=== PATIENT | female | born 1945 | race Caucasian/White ===

== ENCOUNTER → 2017-07-14 | Outpatient (CLI) | payer OTHER, MEDICARE ==
[~2017-07-14] MED LIST: AMB10 PO; ASPEC81 PO; ATEN-173 PO; CARI350T28 PO; EZET10TA63 PO; FLUO20CA35 PO; ISOS30TA3 PO; NTRSLP4 PO; PRAV20TA PO; PRLSR20 PO; RXC5 PO; SENNTAB23 PO
[2017-07-14 18:06] LABS: BLOOD UREA NITROGEN 16 mg/dl (7-18)
== END | disposition home or self-care (01) ==
LOC: C.LABMFLN 15:00
PROVIDERS: ATTEND Urology
DX: R31.0 Gross hematuria (principal)

== ENCOUNTER 2022-04-10 07:57 | Inpatient (IN) ==
--- NOTE | 2022-03-23 15:34 | PAT Medication Instructions ---
Medication Instructions Date of Service March 23, 2022 Home Medications alirocumab 150 mg/mL subcutaneous syringe 150 mg subcut UD aspirin 81 mg tablet 81 mg PO QAM atenolol 25 mg tablet 25 mg PO QPM carisoprodol 350 mg tablet (Soma) 350 mg PO TID cholecalciferol (vitamin D3) 100 mcg (4,000 unit) capsule 100 mcg PO QAM ezetimibe 10 mg tablet (Zetia) 10 mg PO QPM fluoxetine 20 mg tablet 20 mg PO QAM nitroglycerin 0.4 mg sublingual tablet (Nitrostat) 0.4 mg sublingual UD PRN omeprazole 20 mg capsule,delayed release 20 mg PO BID oxycodone 5 mg tablet 5 mg PO Q4H PRN pravastatin 80 mg tablet 80 mg PO QAM prednisone 5 mg tablet 5 mg PO QAM sennosides 8.6 mg-docusate sodium 50 mg tablet 1 tab-cap PO HS zolpidem 10 mg tablet 10 mg PO QPM Continue as directed nitroglycerin 0.4 mg sublingual tablet (Nitrostat) 0.4 mg sublingual UD PRN(if needed) ASK your prescriber and surgeon alirocumab 150 mg/mL subcutaneous syringe 150 mg subcut UD aspirin 81 mg tablet 81 mg PO QAM DO NOT take the morning of surgery cholecalciferol (vitamin D3) 100 mcg (4,000 unit) capsule 100 mcg PO QAM Take morning of surgery With a small sip of water, OTHERWISE NOTHING TO EAT OR DRINK AFTER MIDNIGHT: carisoprodol 350 mg tablet (Soma) 350 mg PO TID fluoxetine 20 mg tablet 20 mg PO QAM omeprazole 20 mg capsule,delayed release 20 mg PO BID oxycodone 5 mg tablet 5 mg PO Q4H PRN(if needed) pravastatin 80 mg tablet 80 mg PO QAM prednisone 5 mg tablet 5 mg PO QAM Take evening before surgery atenolol 25 mg tablet 25 mg PO QPM carisoprodol 350 mg tablet (Soma) 350 mg PO TID ezetimibe 10 mg tablet (Zetia) 10 mg PO QPM omeprazole 20 mg capsule,delayed release 20 mg PO BID oxycodone 5 mg tablet 5 mg PO Q4H PRN(if needed) sennosides 8.6 mg-docusate sodium 50 mg tablet 1 tab-cap PO HS zolpidem 10 mg tablet 10 mg PO QPM Other Notes If you have any questions please call us at [phone] or [phone] or [phone] or [phone]
--- NOTE | 2022-03-27 12:18 | Anesthesiology Consultation ---
Date of Service March 27, 2022 Assessment & Plan (1) Encounter for pre-operative examination: - Check BSG AM DOS - COVID screening: Per assessment on 03/27: No known COVID-19 positive contacts or current COVID-19 related symptoms. Travel screen negative. At surgeon discretion if preop Covid testing being done. - Patient acceptable risk for surgery pending surgeon-ordered cardiology preop evaluation (scheduled 03/31; Dr. Patton/[facility]). Chart Review Chart Review: Patient seen in Pre Admission Testing Teaching & Discussion Pre-Anesthesia Teaching/Discussion Notes: Instructed NPO after midnight before surgery,except medications with 15 cc of water. Medication instructions provided according to the PAT guidelines. History Surgery Operation Date: 04/10/22 07:45 Proposed Procedures p L1-L3 Decompression and Fusion, L3-L5 Hardware Removal, Spinal Cord Monitoring - Yury Melendez, Height/Weight Height: 4 ft 11 in Weight: 68.5 kg Allergies Allergy/AdvReac Type Severity Reaction Status Date / Time Bactrim Allergy Severe SWELLING/RA Verified 08/20/14 08:48 SH Iodinated Contrast Media Allergy Severe ANAPHYLAXIS, Verified 03/23/22 08:54 FINE RASH sulfamethoxazole [Bactrim] Allergy Severe SWELLING/RA Verified 03/23/22 08:54 SH trimethoprim [Bactrim] Allergy Severe SWELLING/RA Verified 03/23/22 08:54 SH Penicillins Allergy Intermediate FINE RASH Verified 03/23/22 08:54 phenylephrine Allergy Unknown UNKNOWN Verified 03/25/22 14:15 REACTION DURING ADMISSION promethazine Allergy Unknown UNKNOWN Verified 03/25/22 14:15 REACTION DURING ADMISSION Cipro AdvReac Mild N/V Verified 08/01/14 13:00 ciprofloxacin [Cipro] AdvReac Mild N/V Verified 03/23/22 08:54 Egg Derived AdvReac Mild N/V Verified 03/23/22 08:54 meperidine AdvReac Mild N/V Verified 03/23/22 08:54 simvastatin AdvReac Mild MYALGIA Verified 03/23/22 08:54 metformin AdvReac Unknown GI DISTRESS Verified 03/25/22 14:15 Unclassified Drugs AdvReac Intermediate TIFFANIE > Uncoded 03/25/22 14:15 INFECTION Medications Home Medications Medication Instructions Recorded Confirmed Last Taken alirocumab 150 mg/mL subcutaneous 150 mg subcut UD 03/23/22 03/23/22 Unknown syringe aspirin 81 mg tablet 81 mg PO QAM 03/23/22 03/23/22 Unknown atenolol 25 mg tablet 25 mg PO QPM 03/23/22 03/23/22 Unknown carisoprodol 350 mg tablet (Soma) 350 mg PO TID 03/23/22 03/23/22 Unknown cholecalciferol (vitamin D3) 100 100 mcg PO QAM 03/23/22 03/23/22 Unknown mcg (4,000 unit) capsule ezetimibe 10 mg tablet (Zetia) 10 mg PO QPM 03/23/22 03/23/22 Unknown fluoxetine 20 mg tablet 20 mg PO QAM 03/23/22 03/23/22 Unknown nitroglycerin 0.4 mg sublingual 0.4 mg sublingual UD PRN Chest Pain 03/23/22 03/23/22 Unknown tablet (Nitrostat) omeprazole 20 mg capsule,delayed 20 mg PO BID 03/23/22 03/23/22 Unknown release oxycodone 5 mg tablet 5 mg PO Q4H PRN Pain 03/23/22 03/23/22 Unknown pravastatin 80 mg tablet 80 mg PO QAM 03/23/22 03/23/22 Unknown prednisone 5 mg tablet 5 mg PO QAM 03/23/22 03/23/22 Unknown sennosides 8.6 mg-docusate sodium 1 tab-cap PO HS 03/23/22 03/23/22 Unknown 50 mg tablet zolpidem 10 mg tablet 10 mg PO QPM 03/23/22 03/23/22 Unknown Prolia 60 mg DIRECTED 03/27/22 03/27/22 Unknown Toujeo Max U-300 SoloStar 12 unit INJ HS 03/27/22 03/27/22 Unknown diclofenac sodium 1 % topical gel topical 03/27/22 Unknown Past Medical History Medical History Arthritis Asthma CAD (coronary artery disease) Remote stents x2 total (2004, 2006), balloon dilation (2012) Diabetes mellitus IDDM Fall Fall (08/2021) > left sided fractured ribs > healed, no current issues GERD (gastroesophageal reflux disease) Hx of hepatitis 50+ years ago r/t drinking well water Hx of myocardial infarction 2004, 2006, 2012 (balloon dilation) Follows with [facility] (Dr. Patton), last visit 01/2022 Hyperlipidemia Hypertension IBS (irritable bowel syndrome) Osteoporosis Rheumatoid arthritis Reason for prednisone Exercise / Class Metabolic Activity II 4-5 Yardwork/Stairs/Walk up hill (one FS (no CP, no SOB)) Past Surgical History Surgical History History of back surgery X3 History of bladder surgery X3- MESH History of cholecystectomy History of coronary artery balloon dilation 2012 History of esophagogastroduodenoscopy (EGD) History of hemorrhoidectomy Hx of cardiac catheterization 2004, 2006 X2 STENTS Hx of colonoscopy Hx of hernia repair X3 Hx of hysterectomy Past Anesthesia History No Hx of Anesthesia Complications and No Family Hx of Anesthesia Complications History of PONV No Hx of PONV and Hx of Motion Sickness (Mild) Social History Smoking Status: Former smoker tobacco type: cigarettes Do You Dip or Chew Tobacco: No Smoking End Date: QUIT > 17 YRS AGO Hx Alcohol Use: No Hx Substance Use: No substance use type: does not use Review of Systems Patient denies chest pain, shortness of breath, dyspnea on exertion, fever, chills, cough, wheezing, palpitations. Physical Exam Vital Signs VITALS BP 128/73 P 66 TEMP 98.4 SP02 98%RA RESP 16 PHYSICAL Mildly decreased cervical extension range of motion. Full TMJ range of motion. TMD 3 finger breaths Mallampati Score 1 Dentition: upper full, edentulous Lungs: clear throughout to auscultation Cardiac: regular rate and rhythm, no murmurs noted Spine: kyphoscoliosis Carotid arteries: negative bruit Extremities: no edema Short neck Lab Results Anesthesia Preop Results Results Anesthesia Widget: WBC 11.30 K/ul (4.8-10.8) H 03/27/22 Hgb 13.0 g/dl (12.0-16.0) 03/27/22 Hct 40.5 % (34.1-44.9) 03/27/22 Plt 235 K/uL (130-400) 03/27/22 Na 140 mmol/L (136-145) 03/27/22 K 4.3 mmol/L (3.5-5.1) 03/27/22 Cl 104 mmol/L (98-107) 03/27/22 CO2 30 mmol/L (21-32) 03/27/22 BUN 15 mg/dl (6-23) 03/27/22 Creat 0.63 mg/dl (0.6-1.2) 03/27/22 Glucose Level 105 mg/dl (70-99(Fasting)) H 03/27/22 PT 10.3 Seconds (9.0-12.0) 03/27/22 PTT 22.9 Seconds (21.0-31.0) 03/27/22 INR 1.0 (0.9-1.1) 03/27/22 HA1c 6.7 % (4.5-5.6) H 03/27/22 Urine Color Yellow 03/27/22 Urine Appearance Clear (Clear) 03/27/22 Urine pH 7.5 (4.5-7.5) 03/27/22 Urine Specific [place] 1.016 (1.000-1.030) 03/27/22 Urine Protein Negative (Negative) 03/27/22 Urine Glucose (UA) Negative (Negative) 03/27/22 Urine Ketones Negative (Negative) 03/27/22 Urine Blood Negative (Negative) 03/27/22 Urine Nitrite Negative (Negative) 03/27/22 Urine Bilirubin Negative (Negative) 03/27/22 Urine Urobilinogen Negative (Negative) 03/27/22 Urine Leukocyte Esterase 1+ (Negative) H 03/27/22 Urine WBC (Auto) >30 /hpf (0-5) H 03/27/22 Urine RBC (Auto) 0-4 /hpf (0-4) 03/27/22 Urine Hyaline Casts (Auto) 1-5 /lpf (0-5) 03/27/22 Urine Epithelial Cells (Auto) >30 /lpf (0-5) H 03/27/22 Urine Bacteria (Auto) 2+ (Negative) H 03/27/22 Blood Type A Positive 03/27/22 Antibody Screen NEGATIVE 03/27/22 Testing Laboratory Results Surgeon's office made aware of elevated WBC and abnormal UA/culture* Electrocardiogram Date: 03/27/22 NSR at 70bpm. NS TWA. No significant change compared to 08/01/14 per project development coordinator review. Chest X-Ray Date: 03/27/22 FINDINGS: PA and lateral chest radiographs are compared to study dated 08/01/2014. The cardiomediastinal silhouette is unremarkable noting atherosclerotic calcification of the thoracic aorta. The lungs and pleural spaces are clear. There is no pneumothorax. The skeletal structures are osteopenic. There are healed left-sided rib fractures. Fusion hardware is partially visualized in the lumbar spine. Cholecystectomy clips are noted in the right upper quadrant. IMPRESSION: No active disease in the chest. Echocardiogram Date: 09/25/20 LVEF 58%. No regional motion abnormality. Mild MR. Stress Test Date: 11/16/17 Type: DSE No echocardiographic evidence of dobutamine induced myocardial ischemia. 111% MPHR. 1.5 mm horizontal to downsloping ST depression inferior leads and 1.[address] depression in V5 and V6 at peak infusion "it is probably false positive" per report. Rest echo LVEF 65%. Grade 2 diastolic dysfunction. Moderate LAE. Mild MR. Cervical Spine Date: 03/27/22 Osteopenia and spondylotic change as above. There is no evidence of inducible subluxation on the flexion/extension views. No acute abnormality is seen on these lateral projections. COVID-19 Risk Screen Screening Information COVID-19 Screen Date: 03/27/22 Exposure 21 Days Family/Household +COVID Last 21 Days: No Exposure 10 Days Any COVID Exposure Last 10 Days: No Symptoms Last 10 Days Experienced COVID Sx Last 10 Days: No + COVID 0-90 Days COVID + in Last 0-90 Days: No
[~2022-04-10 07:57] MED LIST changes: +ACETAMINOPHEN 500 MG TAB PO SCH; -AMB10 PO; -ASPEC81 PO; -ATEN-173 PO; -CARI350T28 PO; +CeleBREX 200 MG CAP PO SCH; -EZET10TA63 PO; -FLUO20CA35 PO; +GABAPENTIN 300 MG CAP PO SCH; -ISOS30TA3 PO; +LR 15ML/HR IV SCH; -NTRSLP4 PO; -PRAV20TA PO; -PRLSR20 PO; -RXC5 PO; -SENNTAB23 PO; +ceFAZolin 1000MG 1,000 MG/7.5 ML SYR IV SCH
[2022-04-10] MEDS ORDERED: ROCURONIUM BROMIDE 10 MG/ML 5 ML VIAL IV ONE (08:24)
[2022-04-10] MEDS ORDERED: PROPOFOL IV EMULSION 10 MG/ML 20 ML VIAL IV ONE (08:24)
[2022-04-10] MEDS ORDERED: LIDOCAINE 2% 20 MG/ML 5 ML SYR IV ONE (08:24)
[2022-04-10] MEDS ORDERED: MIDAZOLAM HCL 1 MG/ML 2ML VIAL ONE (08:25)
[2022-04-10] MEDS ORDERED: fentaNYL citrate 100 MCG/2 ML VIAL ONE ×2 (08:25→12:02)
--- NOTE | 2022-04-10 09:03 | History & Physical Bridge Note ---
Date of Service April 10, 2022 History & Physical Bridge Note I have examined the patient, reviewed the History & Physical and in the interval since the performance of the History & Physical I have noted the following changes of clinical significance: no changes noted
--- NOTE | 2022-04-10 09:04 | History & Physical Report ---
Date of Service April 10, 2022 Assessment & Plan (1) Lumbar stenosis with neurogenic claudication: Plan: L1-L3 decompression and fusion, L3-L5 hardware removal History of Present Illness Chief Complaint: Back and bilateral leg pain Primary Care Provider: Syed Clemons This is a 76-year-old female who presents with chronic persistent back and bilateral leg pain. Failed extensive course of nonoperative care is here for surgical invention. Allergies Allergy/AdvReac Type Severity Reaction Status Date / Time Bactrim Allergy Severe SWELLING/RA Verified 08/20/14 08:48 SH Iodinated Contrast Media Allergy Severe ANAPHYLAXIS, Verified 04/10/22 08:28 FINE RASH sulfamethoxazole [Bactrim] Allergy Severe SWELLING/RA Verified 04/10/22 08:28 SH trimethoprim [Bactrim] Allergy Severe SWELLING/RA Verified 04/10/22 08:28 SH Penicillins Allergy Intermediate FINE RASH Verified 04/10/22 08:28 phenylephrine Allergy Unknown UNKNOWN Verified 04/10/22 08:28 REACTION DURING ADMISSION promethazine Allergy Unknown UNKNOWN Verified 04/10/22 08:28 REACTION DURING ADMISSION Cipro AdvReac Mild N/V Verified 08/01/14 13:00 ciprofloxacin [Cipro] AdvReac Mild N/V Verified 04/10/22 08:28 Egg Derived AdvReac Mild N/V Verified 04/10/22 08:28 meperidine AdvReac Mild N/V Verified 04/10/22 08:28 simvastatin AdvReac Mild MYALGIA Verified 04/10/22 08:28 metformin AdvReac Unknown GI DISTRESS Verified 04/10/22 08:28 Unclassified Drugs AdvReac Intermediate TIFFANIE > Uncoded 04/10/22 08:28 INFECTION Home Medications Medication Instructions Recorded Confirmed Type alirocumab 150 mg/mL subcutaneous 150 mg subcut UD 03/23/22 04/10/22 History syringe aspirin 81 mg tablet 81 mg PO QAM 03/23/22 04/10/22 History atenolol 25 mg tablet 25 mg PO QPM 03/23/22 04/10/22 History carisoprodol 350 mg tablet (Soma) 350 mg PO TID 03/23/22 04/10/22 History cholecalciferol (vitamin D3) 100 100 mcg PO QAM 03/23/22 04/10/22 History mcg (4,000 unit) capsule ezetimibe 10 mg tablet (Zetia) 10 mg PO QPM 03/23/22 04/10/22 History fluoxetine 20 mg tablet 20 mg PO QAM 03/23/22 04/10/22 History nitroglycerin 0.4 mg sublingual 0.4 mg sublingual UD PRN Chest Pain 03/23/22 03/23/22 History tablet (Nitrostat) omeprazole 20 mg capsule,delayed 20 mg PO BID 03/23/22 04/10/22 History release oxycodone 5 mg tablet 5 mg PO Q4H PRN Pain 03/23/22 03/23/22 History pravastatin 80 mg tablet 80 mg PO QAM 03/23/22 04/10/22 History prednisone 5 mg tablet 5 mg PO QAM 03/23/22 04/10/22 History sennosides 8.6 mg-docusate sodium 1 tab-cap PO HS 03/23/22 04/10/22 History 50 mg tablet zolpidem 10 mg tablet 10 mg PO QPM 03/23/22 04/10/22 History Prolia 60 mg DIRECTED 03/27/22 04/10/22 History Toujeo Max U-300 SoloStar 12 unit INJ HS 03/27/22 04/10/22 History diclofenac sodium 1 % topical gel topical 03/27/22 History Past Med/Surg History Medical History Arthritis Asthma CAD (coronary artery disease) Remote stents x2 total (2004, 2006), balloon dilation (2012) Diabetes mellitus IDDM Fall Fall (08/2021) > left sided fractured ribs > healed, no current issues GERD (gastroesophageal reflux disease) Hx of hepatitis 50+ years ago r/t drinking well water Hx of myocardial infarction 2004, 2006, 2012 (balloon dilation) Follows with [facility] (Dr. Patton), last visit 01/2022 Hyperlipidemia Hypertension IBS (irritable bowel syndrome) Osteoporosis Rheumatoid arthritis Reason for prednisone Surgical History History of back surgery X3 History of bladder surgery X3- MESH History of cholecystectomy History of coronary artery balloon dilation 2013 History of esophagogastroduodenoscopy (EGD) History of hemorrhoidectomy Hx of cardiac catheterization 2004, 2006 X2 STENTS Hx of colonoscopy Hx of hernia repair X3 Hx of hysterectomy Social History (Updated 12/29/21 @ 09:53 by Ann Tinoco) Smoking Status: Former smoker Smoking End Date: QUIT > 17 YRS AGO; Second Hand Exposure: No; Do You Dip or Chew Tobacco: No; Tobacco Cessation Education Requested by Patient: No Hx Alcohol Use: No Hx Substance Use: No Preferred Language: Kyrgyz Communication Ability: Effective Medical Assembly Required: No Beliefs That Will Affect Care: None Current Living Situation: Alone Other Information That Helps Us Care for You: No Feels Safe at Home: Yes Safety Concerns: Feels Safe At This Time Assistive Devices: Walker Assistive Devices Comment: USES WALKER OCCASIONALLY Physical Exam Physical Exam: Patient is alert and oriented Heart regular rhythm Lungs clear Results & Data Results & Data ([facility]) Vital Signs (Past 12 Hours) Vital Signs Temp Pulse Resp BP Pulse Ox O2 Del Method 04/10/22 08:23 36.8 C 67 16 151/75 H 95 Room Air
[2022-04-10] MEDS ORDERED: BUPIVACAINE/EPINEPHRINE 0.25% 1:200,000 30 ML VIAL ONE (09:22)
[2022-04-10] MEDS ORDERED: Nursing to Pharmacy Communication SCH (09:45)
[2022-04-10] MEDS ORDERED: HYDROCORTISONE SOD SUCCINATE 100 MG/2 ML VIAL ONE (10:23)
[2022-04-10] MEDS ORDERED: PHENYLEPHRINE 100MCG/ML 5ML SYR ONE (10:23)
[2022-04-10] MEDS ORDERED: ONDANSETRON INJ 2 MG/ML 2 ML VIAL ONE (10:23)
[2022-04-10] MEDS ORDERED: ePHEDrine sulfate 50 MG/ML AMP ONE (10:25)
[2022-04-10] MEDS ORDERED: ceFAZolin 330 MG/ML 1 GM VIAL IM ONE (10:38)
[2022-04-10] MEDS ORDERED: ceFAZolin 1000MG 1,000 MG/7.5 ML SYR IV ONE (10:42)
[2022-04-10] MEDS ORDERED: FLOSEAL HEMOSTATIC MATRIX 10ML TOP ONE (10:44)
[2022-04-10] MEDS ORDERED: SUGAMMADEX SODIUM 200 MG/2 ML VIAL IV ONE (10:46)
--- NOTE | 2022-04-10 11:29 | Operative Report ---
Post Operative Report Pre & Post Diagnosis Operation Date: 04/10/22 09:35 Pre-Op Diagnosis: Lumbar Stenosis with Neurogenic Claudication Post-Op Diagnosis: Lumbar Stenosis with Neurogenic Claudication Osteoporosis I identified the patient and participated in the time-out.: Yes Procedure Operation Date: 04/10/22 09:35 Actual Procedures #1 removal of posterior instrumentation L3-L5. #2 exploration of fusion L3-L5. #3 lumbar decompression bilateral medial facetectomies and foraminotomies L1-L2 L2-L3. #4 posterior spinal fusion L1-L3. #5 placement posterior instrumentation L2-L5. #6 placement locally harvested morselized autograft in the posterior gutters. #7 placement of I factor model V toss in the posterior gutters L1-L3. Surgeon Yury Melendez, DO Regulatory Lead Cody Bertrand Estimated Blood Loss 150 Findings Consistent with Post-Op Diagnosis Specimens None Indications This is a 76-year-old female who presents above-mentioned diagnosis of pain since course of nonoperative care she is here for surgical invention. Description of Procedure Patient was met with identified informed consent obtained. Patient was then taken to the operative suite underwent a patient placed in a prone position on the [facility] top Tee frame. All bony prominences well-padded eyes inspected to ensure no external pressure placed upon them. Lumbar spine was then prepped and draped no sterile fashion. Sharp dissection with the assistance pericardial performed down to and exposing the lamina and transverse processes of L1-L2 and instrumentation L3-L4-L5 bilaterally. I then proceeded to move the hardware bilaterally explore the fusion mass noting it to be mature and intact. I performed a complete laminectomy of L2 partial laminectomy of L1 including bilateral medial facetectomies and foraminotomies addressing severe spinal stenosis. I did explore the left L3 nerve root removing any disc herniations that had migrated caudally. At this complete pedicle screws were placed in L2-L3 and L5 bilaterally with assistance of fluoroscopy the proper sized estrella locked into position. The transverse processes of L1-L2-L3 were then burred to subcortical bleeding bone. I factor combined with V toss and locally harvested morselized autograft was placed in the posterior gutters. 15 round JORGE drain inserted. The incision was then closed with 1 Vicryl the fascia 2-0 Vicryl subcutaneously and 4 Monocryl for final skin closure. Steri-Strip sterile dressings placed. Patient was then awakened taken to PACU in stable condition. Please note spinal cord monitoring was utilized at the procedure no changes noted. Lastly Cody Bertrand was present at the entire surgeon while the patient positioning complex portions of the surgery and final skin closure. I attest to the content of the Intraoperative Record and any orders documented therein. Any exceptions are noted below.
[2022-04-10] MEDS ORDERED: ePHEDrine sulfate 50 MG/ML AMP IV PRN (12:01)
[2022-04-10] MEDS ORDERED: HYDROmorphone INJ 1 MG/ML SYRINGE IV PRN ×2 (12:01→13:04)
[2022-04-10] MEDS ORDERED: ONDANSETRON INJ 2 MG/ML 2 ML VIAL IV PRN ×2 (12:01→13:04)
[2022-04-10] MEDS ORDERED: ATROPINE SULFATE 0.1 MG/ML 10ML SYR IV PRN (12:01)
[2022-04-10] MEDS: fentaNYL citrate 100 MCG/2 ML VIAL IV PRN ×4 (12:01→12:16)
--- NOTE | 2022-04-10 12:49 | Anesthesiology Progress Note ---
Date of Service April 10, 2022 Anesthesia Post Procedure Vital Signs Vital Signs: Temp Pulse Resp BP Pulse Ox O2 Del Method O2 Flow Rate 04/10/22 12:35 36.5 C 78 16 108/61 99 Nasal Cannula 2 04/10/22 12:25 36.5 C 77 16 105/51 L 99 Nasal Cannula 2 04/10/22 12:15 76 16 109/54 L 97 Oxymask 5 04/10/22 12:05 83 16 104/62 100 Oxymask 5 04/10/22 11:55 36.5 C 85 16 131/62 100 Oxymask 5 04/10/22 08:23 36.8 C 67 16 151/75 H 95 Room Air Pain Intensity Lower Back: Pain Intensity: 4 Left Leg: Pain Intensity: 4 Transfer of Care Handoff Completed per policy Notes Mental Status: alert / awake / arousable and participated in evaluation Patient Amnestic to Procedure: Yes Nausea / Vomiting: adequately controlled Pain: adequately controlled Airway Patency, RR, SpO2: stable & adequate BP & HR: stable & adequate Hydration State: stable & adequate Anesthetic Complications: no major complications apparent
[2022-04-10] MEDS ORDERED: METOCLOPRAMIDE HCL INJ 5 MG/ML 2 ML VIAL IV PRN (13:04)
[2022-04-10] MEDS ORDERED: ALUMINUM/MAGNESIUM SUSP 30 ML UDC PO PRN (13:04)
[2022-04-10] MEDS ORDERED: ACETAMINOPHEN 1,000 MG/100 ML VIAL IV PRN (13:04)
[2022-04-10] MEDS ORDERED: NALOXONE HCL 0.4 MG/1 ML VIAL/CARP IV PRN (13:04)
[2022-04-10] MEDS ORDERED: diphenhydrAMINE Capsule 25 MG CAP PO PRN (13:04)
[2022-04-10] MEDS ORDERED: LACTATED RINGER'S 1,000 ML IV SCH ×2 (13:04→22:00)
[2022-04-10] MEDS ORDERED: ACETAMINOPHEN 500 MG TAB PO PRN (13:04)
[2022-04-10] MEDS ORDERED: NITROGLYCERIN SL 0.4 MG/TAB TAB SL PRN (13:04)
[2022-04-10] MEDS ORDERED: PROMETHAZINE HCL 12.5 MG in SODIUM CHLORIDE 0.9% 50 ML IV PRN (13:04)
[2022-04-10] MEDS ORDERED: bisacodyL 10 MG SUPP PR PRN (13:04)
[2022-04-10] MEDS ORDERED: HYDROmorphone INJ 0.5 MG/0.5 ML SYR IV PRN (13:04)
[2022-04-10] MEDS ORDERED: MAGNESIUM HYDROXIDE SUSP 30 ML UDC PO PRN (13:04)
[2022-04-10] MEDS ORDERED: FAMOTIDINE 20 MG TAB PO PRN (13:04)
[2022-04-10] MEDS ORDERED: hydrOXYzine HCl 25 MG TAB PO PRN (13:04)
[2022-04-10] MEDS ORDERED: LORazepam 0.5 MG in SYRINGE 0 ML IV PRN (13:04)
[2022-04-10] MEDS ORDERED: SOD PHOSPHATE/SOD BIPHOSPHATE ENEMA 132 ML BTL PR PRN (13:04)
[2022-04-10] MEDS ORDERED: traMADol HCL 50 MG TABLET PO PRN (13:04)
[2022-04-10] MEDS ORDERED: LORazepam 0.5 MG TAB PO PRN (13:04)
[2022-04-10] MEDS ORDERED: ONDANSETRON 4 MG OD TAB PO PRN (13:04)
--- NOTE | 2022-04-10 13:49 | Fluoroscopy Report ---
INTRAOPERATIVE RADIOGRAPHS CLINICAL HISTORY: Lumbar spinal fusion. Fluoroscopy time: 16 seconds. FINDINGS: 3 spot fluoroscopic views of the lumbar spine are presented. Comparison is made to study dennise foster 08/20/2014. There has been discectomy at L5-S1. Interpedicular screws are in place at L2, L3, and L 5. The orthopedic hardware appears intact. IMPRESSION: Intraoperative images from lumbar spinal fusion surgery as above. Electronically signed by: Segundo Beasley M.D. 04/10/2022 1:47 PM
[2022-04-10] MEDS: dexAMETHasone 6 MG in SYRINGE 0 ML IV SCH (14:17)
[2022-04-10] MEDS ORDERED: ALBUTEROL HFA 8 GM INHALER INH PRN (14:20)
[2022-04-10] MEDS ORDERED: SODIUM CHLORIDE 0.9% 1000ML 500 ML IV ONE (14:22)
--- NOTE | 2022-04-10 14:24 | Consultation ---
Date of Consultation April 10, 2022 Assessment & Plan (1) Status post lumbar surgery: (2) Lumbar stenosis with neurogenic claudication: Post op day# 0 S/P L1-L3 decompression and fusion by Dr Nora LANGLEY#150ml Pain management per ortho Wound management per ortho PT/OT as appropriate DVT prophylaxis per ortho Incentive spirometry Monitor H&H for acute blood loss anemia; pre-op Hgb: 13 (3) Essential hypertension: BP running low side after coming to floor. Time of my evaluation BP 89/49 Given IVF bolus with improvement BP of 103/58 Hold home lisinopril and reassess tomorrow Atenolol with holding parameters (4) Diabetes mellitus, type II: Insulin dependent A1c: 6.7 on 03/27/22 Hold home insulin. Basal bolus insulin per glycemic pharmacist. Appreciate glycemic management (5) CAD (coronary artery disease): S/P stent in 2004, 2006 Continue aspirin, atenolol with holding parameters (6) Arthritis: On chronic steroids Continue prednisone (7) Mixed hyperlipidemia: Continue ezetimibe Resume Praluent outpatient (8) COPD (chronic obstructive pulmonary disease): No signs exacerbation Continue albuterol prn (9) Depression: Continue fluoxetine DVT Prophylaxis SCDs per ortho Disposition per primary team Follows with Dr Syed Clemons for routine care Pt was seen and care coordinated with Dr Woodruff. See addendum Thank you for this consultation. We will follow the patient with you during their hospital stay. You can reach a member of the [facility] Hospitalist Team 11/01 via [facility] Supervising Physician Co-Signing Physician Notes I have seen and examined the patient and have discussed the case with the provider above. I agree with the assessment and plan as stated. 76 yo F s/p lumbar surgery today. Post operative hypotension is related to narcotics in PACU, most likely. Daughter was very interested in getting her pain medications and knowing frequencies/dosing where the patient was not in severe pain. We discussed the prolonged pain control that comes with PO meds instead of IV meds which only last a short while. We set expectations that she should request these medications to manage the pain, but that we won't be getting her pain level to a zero. She verbalized understanding. She reports that her original leg pain pre-op is now gone, and she is improved. She denies any chest pain, SOB or other symptoms at this time. Physical exam as above. Cont insulin while hospitalized because she is in a stressed state post operatively and is receiving decadron which will cause hyperglycemia. Thank you for this consultation! We will continue to follow her during this hospital stay. DO Ranjan History of Present Illness Requesting Physician: Dr Melendez Reason for Consultation: Post op medical management Attending Physician: Yury Melendez DO History of Present Illness Patient is 76 y/o F with PMH DM II, CAD s/p stent in 2004, 2006, HTN, dyslipidemia, COPD, arthritis, chronic back pain, depression, GERD seen in medical consultation s/p L1-L3 decompression and fusion today by Dr Melendez. Post op patient reports pain 4 out of 10 on pain scale. She denies dizziness, CP, SOB, syncope. She had received IV fentanyl 100mcg in PACU prior to coming to floor. SBP noted to drop in 70's per nursing staff and pt placed in supine position with repeat SBP of 84. Denies nausea, vomiting. Last BM reported yesterday. Denies fever/chills, diaphoresis, SWARTZ, vision changes, neck pain, pa lpitations, cough, sore throat, choking, rhinorrhea, abdominal pain, paresthesias, extremity weakness, extremity edema, rashes, urinary symptoms. Allergies Allergy/AdvReac Type Severity Reaction Status Date / Time Bactrim Allergy Severe SWELLING/RA Verified 08/20/14 08:48 SH Iodinated Contrast Media Allergy Severe ANAPHYLAXIS, Verified 04/10/22 08:28 FINE RASH sulfamethoxazole [Bactrim] Allergy Severe SWELLING/RA Verified 04/10/22 08:28 SH trimethoprim [Bactrim] Allergy Severe SWELLING/RA Verified 04/10/22 08:28 SH Penicillins Allergy Intermediate FINE RASH Verified 04/10/22 08:28 phenylephrine Allergy Unknown UNKNOWN Verified 04/10/22 08:28 REACTION DURING ADMISSION promethazine Allergy Unknown UNKNOWN Verified 04/10/22 08:28 REACTION DURING ADMISSION Cipro AdvReac Mild N/V Verified 08/01/14 13:00 ciprofloxacin [Cipro] AdvReac Mild N/V Verified 04/10/22 08:28 Egg Derived AdvReac Mild N/V Verified 04/10/22 08:28 meperidine AdvReac Mild N/V Verified 04/10/22 08:28 simvastatin AdvReac Mild MYALGIA Verified 04/10/22 08:28 metformin AdvReac Unknown GI DISTRESS Verified 04/10/22 08:28 Unclassified Drugs AdvReac Intermediate TIFFANIE > Uncoded 04/10/22 08:28 INFECTION Home Medications Medication Instructions Recorded Confirmed Type alirocumab 150 mg/mL subcutaneous 150 mg subcut UD 03/23/22 04/10/22 History syringe atenolol 25 mg tablet 25 mg PO QPM 03/23/22 04/10/22 History carisoprodol 350 mg tablet (Soma) 350 mg PO TID 03/23/22 04/10/22 History cholecalciferol (vitamin D3) 100 100 mcg PO QAM 03/23/22 04/10/22 History mcg (4,000 unit) capsule ezetimibe 10 mg tablet (Zetia) 10 mg PO QPM 03/23/22 04/10/22 History fluoxetine 20 mg tablet 20 mg PO QAM 03/23/22 04/10/22 History nitroglycerin 0.4 mg sublingual 0.4 mg sublingual UD PRN Chest Pain 03/23/22 03/23/22 History tablet (Nitrostat) omeprazole 20 mg capsule,delayed 20 mg PO BID 03/23/22 04/10/22 History release pravastatin 80 mg tablet 80 mg PO QAM 03/23/22 04/10/22 History prednisone 5 mg tablet 5 mg PO QAM 03/23/22 04/10/22 History sennosides 8.6 mg-docusate sodium 1 tab-cap PO HS 03/23/22 04/10/22 History 50 mg tablet zolpidem 10 mg tablet 10 mg PO QPM 03/23/22 04/10/22 History Prolia 60 mg DIRECTED 03/27/22 04/10/22 History Toujeo Max U-300 SoloStar 12 unit INJ HS 03/27/22 04/10/22 History diclofenac sodium 1 % topical gel 1 ea topical TID PRN Pain 03/27/22 04/10/22 History albuterol sulfate 90 mcg/actuation 2 puff inhalation Q4H PRN 04/10/22 04/10/22 History aerosol inhaler (Ventolin HFA) Shortness Of Breath Or Wheezing aspirin 81 mg tablet,delayed 81 mg PO DAILY 04/10/22 04/10/22 History release fluoxetine 40 mg capsule 40 mg PO DAILY 04/10/22 04/10/22 History lisinopril 2.5 mg tablet 2.5 mg PO PM 04/10/22 04/10/22 History Patient History Medical History (Updated 04/10/22 @ 16:50 by Nadya Jones PA-C) Arthritis Asthma CAD (coronary artery disease) Remote stents x2 total (2004, 2006), balloon dilation (2012) COPD (chronic obstructive pulmonary disease) Depression Diabetes mellitus IDDM Fall Fall (08/2021) > left sided fractured ribs > healed, no current issues GERD (gastroesophageal reflux disease) Hx of hepatitis 50+ years ago r/t drinking well water Hx of myocardial infarction 2004, 2006, 2012 (balloon dilation) Follows with S cardio (Dr. Patton), last visit 01/2022 Hyperlipidemia Hypertension IBS (irritable bowel syndrome) Osteoporosis Rheumatoid arthritis Reason for prednisone Surgical History (Updated 04/10/22 @ 16:45 by Nadya Jones PA-C) History of back surgery X3 History of bladder surgery X3- MESH History of cholecystectomy History of coronary artery balloon dilation 2012 History of esophagogastroduodenoscopy (EGD) History of hemorrhoidectomy Hx of cardiac catheterization 2004, 2006 X2 STENTS Hx of colonoscopy Hx of hernia repair X3 Hx of hysterectomy Family History (Updated 04/10/22 @ 16:42 by Nadya Jones PA-C) Other Breast cancer Colorectal cancer Diabetes Heart disease Hypertension Social History Smoking Status: Former smoker Smoking End Date: QUIT > 17 YRS AGO; Second Hand Exposure: No; Do You Dip or Chew Tobacco: No; Tobacco Cessation Education Requested by Patient: No Hx Alcohol Use: No Hx Substance Use: No Preferred Language: Montserratian Communication Ability: Effective Facilities Maintenance Supervisor Required: No Beliefs That Will Affect Care: None Current Living Situation: Alone Other Information That Helps Us Care for You: No Feels Safe at Home: Yes Safety Concerns: Feels Safe At This Time Assistive Devices: Walker Assistive Devices Comment: USES WALKER OCCASIONALLY Review of Systems Review of Systems: All systems reviewed & are unremarkable except as noted in HPI & below Physical Exam Physical Exam: General: no distress, WDWN Head: normocephalic, atraumatic Eyes: conjunctiva non-injected, anicteric ENT: normal inspection external ears, nose, mucous membranes moist Neck: supple, trachea midline Lungs: clear, no respiratory distress, no wheezing/rhonchi/rales CV: RRR, no murmur, no pretibial edema Abd: normal BS, soft, non-tender Back: surgical dressing dry, +JORGE drain with serosanguineous drainage Ext: no cyanosis, no calf tenderness; bilateral pedal pushes and pulls intact, sensation to light touch intact, distal pulses intact Neuro: A&O x 3, no focal deficits noted, normal affect Skin: warm, dry Results & Data ([facility]) Vital Signs (Past 12 Hours) Vital Signs Temp Pulse Resp BP BP Pulse Ox O2 Del Method 04/10/22 14:05 36.2 C L 72 15 97/44 L 87/40 L 97 Nasal Cannula 04/10/22 13:35 94/58 L 04/10/22 13:30 36.6 C 16 89/49 L 97 Nasal Cannula 04/10/22 12:53 36.9 C 79 16 100/55 L 99 Nasal Cannula 04/10/22 12:35 36.5 C 78 16 108/61 99 Nasal Cannula 04/10/22 12:25 36.5 C 77 16 105/51 L 99 Nasal Cannula 04/10/22 12:15 76 16 109/54 L 97 Oxymask 04/10/22 12:05 83 16 104/62 100 Oxymask 04/10/22 11:55 36.5 C 85 16 131/62 100 Oxymask 04/10/22 08:23 36.8 C 67 16 151/75 H 95 Room Air O2 Flow Rate 04/10/22 14:05 2 04/10/22 13:35 04/10/22 13:30 04/10/22 12:53 2 04/10/22 12:35 2 04/10/22 12:25 2 04/10/22 12:15 5 04/10/22 12:05 5 04/10/22 11:55 5 04/10/22 08:23
[2022-04-10] MEDS ORDERED: HYDROCODONE/ACETAMOPHEN 5/325MG TAB PO STA (14:42)
[2022-04-10] MEDS: CARISOPRODOL 350 MG TABLET PO SCH ×2 (16:14→20:32)
[2022-04-10] MEDS ORDERED: CARBOHYDRATES FOR HYPOGLYCEMIA PO PRN (17:58)
[2022-04-10] MEDS ORDERED: GLUCOSE 10 TAB/TUBE PO PRN (17:58)
[2022-04-10] MEDS ORDERED: GLUCOSE 40% GEL 15 GM TUBE PO PRN (17:58)
[2022-04-10] MEDS ORDERED: DEXTROSE 50% 50 ML SYRINGE IV PRN (17:58)
[2022-04-10] MEDS ORDERED: GLUCAGON FOR INJ 1 MG VIAL SQ PRN (17:58)
[2022-04-10] MEDS: CLINDAMYCIN/D5W 600 MG/50 ML BAG IV SCH (18:13)
[2022-04-10] MEDS ORDERED: INSULIN ASPART PER UNIT ONE (18:40)
[2022-04-10] MEDS: INSULIN ASPART PER UNIT SC SCH ×2 (18:41→20:56)
[2022-04-10] MEDS ORDERED: LACTATED RINGER'S 1,000 ML IV ONE (20:06)
[2022-04-10] MEDS: ZOLPIDEM TARTRATE 10 MG TAB PO SCH (20:12)
[2022-04-10] MEDS: HYDROCODONE/ACETAMOPHEN 5/325MG TAB PO PRN (20:13)
[2022-04-10] MEDS: EZETIMIBE 10 MG TABLET PO SCH (20:13)
[2022-04-10] MEDS: PANTOprazole 40 MG TAB PO SCH (20:14)
[2022-04-10] MEDS: DOCUSATE SODIUM/SENNA 50/8.6MG TAB PO SCH (20:14)
[2022-04-10] MEDS ORDERED: dexAMETHasone 4 MG in SYRINGE 0 ML IV ONE (20:30)
[2022-04-10 20:40] LABS: Hematocrit (blood only) 33.2 % (34.1-44.9); Hemoglobin 10.6 g/dl (12.0-16.0); Mean Corpuscular Hemoglobin 27.3 pg (25.0-34.0); Mean Corpuscular Hgb Conc 31.9 g/dL (32.0-36.0); Mean Corpuscular Volume 85.6 fL (80.0-100.0); Mean Platelet Volume 10.2 fL (9.4-12.3); Platelet Count 177 K/uL (130-400); RDW Coefficient of Variation 14.3 % (11.5-14.5); RDW Standard Deviation 44.5 fL (36.4-46.3); Red Blood Count 3.88 M/uL (3.93-5.22); White Blood Count 9.27 K/ul (4.8-10.8)
[2022-04-10] MEDS ORDERED: ATENOLOL 25 MG TABLET PO SCH (21:00)
[2022-04-10] MEDS ORDERED: DOCUSATE SODIUM/SENNA 50/8.6MG TAB PO SCH (21:00)
[2022-04-10] MEDS ORDERED: LANTUS PER UNIT CHARGE SQ ONE (21:00)
[2022-04-10 21:02] LABS: BUN Creatinine Ratio 12.4 (10-20); Calcium 7.4 mg/dl (8.5-10.1); Creatinine Clr Calc Pharmacy 45.2 ml/min; Magnesium 1.7 mg/dl (1.7-2.4); Potassium 4.4 mmol/L (3.5-5.1)
[2022-04-10 21:05] LABS: Basophils # (auto) 0.01 K/uL (0-0.2); Basophils % (auto) 0.1 %; Immature Granulocytes # (auto) 0.03 K/uL (0.00-0.02); Immature Granulocytes % (auto) 0.3 %; Lymphocytes # (auto) 0.54 K/uL (1.2-3.4); Lymphocytes % (auto) 5.8 %; Monocytes # (auto) 0.28 K/uL (0.24-0.82); Neutrophils # (auto) 8.41 K/uL (1.4-6.5); Neutrophils % (auto) 90.8 %
[2022-04-10] MEDS ORDERED: MAGNESIUM SULFATE / D5W 1 GM/100 ML BAG IV ONE (21:15)
[2022-04-11] MEDS: CLINDAMYCIN/D5W 600 MG/50 ML BAG IV SCH (01:04)
[2022-04-11] MEDS ORDERED: LACTATED RINGER'S 1,000 ML IV ONE (01:31)
[2022-04-11] MEDS: POLYETHYLENE (MIRALAX) 17 GM PACK PO SCH ×4 (06:10→23:56)
[2022-04-11 07:04] LABS: Basophils # (auto) 0.01 K/uL (0-0.2); Basophils % (auto) 0.1 %; Hematocrit (blood only) 33.4 % (34.1-44.9); Hemoglobin 10.7 g/dl (12.0-16.0); Immature Granulocytes # (auto) 0.07 K/uL (0.00-0.02); Immature Granulocytes % (auto) 0.5 %; Lymphocytes # (auto) 0.89 K/uL (1.2-3.4); Lymphocytes % (auto) 6.9 %; Mean Corpuscular Hemoglobin 27.1 pg (25.0-34.0); Mean Corpuscular Volume 84.6 fL (80.0-100.0); Mean Platelet Volume 10.3 fL (9.4-12.3); Monocytes # (auto) 0.69 K/uL (0.24-0.82); Monocytes % (auto) 5.4 %; Neutrophils % (auto) 87.1 %; Platelet Count 211 K/uL (130-400); RDW Coefficient of Variation 14.2 % (11.5-14.5); RDW Standard Deviation 44.2 fL (36.4-46.3); Red Blood Count 3.95 M/uL (3.93-5.22); White Blood Count 12.86 K/ul (4.8-10.8)
[2022-04-11 07:41] LABS: BUN Creatinine Ratio 14.1 (10-20); Calcium 8.1 mg/dl (8.5-10.1); Creatinine Clr Calc Pharmacy 62.8 ml/min; Est GFR (African American) 100.5 ml/min; Est GFR (Non-African American) 86.7 ml/min; Potassium 4.3 mmol/L (3.5-5.1)
[2022-04-11] MEDS ORDERED: FLUoxetine HCL 20 MG CAP PO SCH (09:00)
[2022-04-11] MEDS: FLUoxetine HCL 20 MG CAP PO SCH (09:06)
[2022-04-11] MEDS: PRAVASTATIN SOD 40 MG TAB PO SCH (09:07)
[2022-04-11] MEDS: PANTOprazole 40 MG TAB PO SCH ×2 (09:07→20:19)
[2022-04-11] MEDS: ASPIRIN 81 MG ECTAB PO SCH (09:07)
[2022-04-11] MEDS: CHOLECALCIFEROL 1,000 UNITS 25 MCG TAB PO SCH (09:07)
[2022-04-11] MEDS: predniSONE 5 MG TAB PO SCH (09:08)
[2022-04-11] MEDS: INSULIN ASPART PER UNIT SC SCH ×4 (09:19→21:05)
[2022-04-11] MEDS: CARISOPRODOL 350 MG TABLET PO SCH ×3 (09:20→21:06)
[2022-04-11] MEDS: HYDROCODONE/ACETAMOPHEN 5/325MG TAB PO PRN ×2 (09:20→18:06)
--- NOTE | 2022-04-11 09:54 | Orthopedic Progress Note ---
Date of Service April 11, 2022 Assessment & Plan (1) Lumbar stenosis with neurogenic claudication: Plan: This Hi Richard physical therapy monitor JORGE operatively discharge home next 2 days. Admission and Anticipated Discharge Date Admission Date: April 10, 2022 Subjective Back pain controlled leg symptoms markedly improved Physical Exam Physical Exam: Patient appears comfortable. She is constricted testing. Results & Data ([facility]) Vital Signs (Past 12 Hours) Vital Signs Temp Pulse Resp BP Pulse Ox O2 Del Method 04/11/22 07:32 36.6 C 74 14 109/58 L 96 Room Air 04/11/22 04:00 37.3 C 82 16 121/64 95 Room Air 04/10/22 23:00 36.9 C 80 16 113/63 96 Room Air
--- NOTE | 2022-04-11 13:26 | Hospitalist Progress Note ---
Date of Service April 11, 2022 Assessment & Plan (1) Status post lumbar surgery: Plan (1) Status post lumbar surgery: (2) Lumbar stenosis with neurogenic claudication: Likely Ac Blood loss anemia, post operative: Hb dropped from 13 to 10.6 post operatively, has been stable. Post op day# 1 S/P L1-L3 decompression and fusion by Dr Nora LANGLEY#150ml Pain management per ortho Wound management per ortho PT/OT as appropriate DVT prophylaxis per ortho Incentive spirometry Pt w/ no dizziness/chest pain/palpitations. (3) Essential hypertension: BP running low side after coming to floor from surgery. Given IVF bolus with improvement BP of 103/58 Continue to hold home blood pressure medication, reassess on a daily basis to resume home medication. Atenolol with holding parameters (4) Diabetes mellitus, type II: Insulin dependent A1c: 6.7 on 03/27/22 Continue home dose insulin glargine with sliding scale. (5) CAD (coronary artery disease): S/P stent in 2004, 2006 Continue aspirin, atenolol with holding parameters (6) Arthritis: On chronic steroids Continue prednisone (7) Mixed hyperlipidemia: Continue ezetimibe Resume Praluent outpatient (8) COPD (chronic obstructive pulmonary disease): No signs exacerbation Continue albuterol prn (9) Depression: Continue fluoxetine DVT Prophylaxis SCDs per ortho Disposition per primary team Follows with Dr Syed Clemons for routine care Admission and Anticipated Discharge Date Admission Date: April 10, 2022 Subjective Patient seen and examined at bedside as a follow-up of medical consult for status post lumbar surgery. Patient was sitting up in chair, on room air, NAD, reports eating okay and tolerating diet well, has normal bowel, is moving gas, reports some pain at incision site, reports improvement in her LLE radicular pain, denies any fever/headache/dizziness/chest pain/palpitations/belly pain/other review of symptoms. Physical Exam Physical Exam: GENERAL: Alert and oriented x3. NAD, on RA. HEENT: No pallor, no icterus. Pupils equal, round and reactive to light. Oral mucosa moist. NECK: No JVD, no neck masses. HEART: S1 and S2 heard. Regular rate and rhythm. No murmur, no gallop. RESPIRATORY SYSTEM: Normal AP diameter. No accessory muscle use. No wheezing, no crackles. ABDOMEN: Soft, bowel sounds present, nontender, no distention. CENTRAL NERVOUS SYSTEM: No facial droop. Speech is clear. Obeys simple commands. Moves extremities. EXTREMITIES: No edema, no erythema seen. Low back with clean dressing without soakage. JORGE drain with mod serosanguineous collection noted. Results & Data Results & Data ([facility]) Vital Signs (Past 12 Hours) Vital Signs Temp Pulse Resp BP Pulse Ox O2 Del Method 04/11/22 07:32 36.6 C 74 14 109/58 L 96 Room Air 04/11/22 04:00 37.3 C 82 16 121/64 95 Room Air
[2022-04-11] MEDS: dexAMETHasone 6 MG in SYRINGE 0 ML IV SCH (14:13)
[2022-04-11] MEDS: DOCUSATE SODIUM/SENNA 50/8.6MG TAB PO SCH (20:19)
[2022-04-11] MEDS: ATENOLOL 25 MG TABLET PO SCH (20:19)
[2022-04-11] MEDS: EZETIMIBE 10 MG TABLET PO SCH (20:19)
[2022-04-11] MEDS: LANTUS PER UNIT CHARGE SQ SCH (21:05)
[2022-04-11] MEDS: ZOLPIDEM TARTRATE 10 MG TAB PO SCH (21:06)
[2022-04-12] MEDS: POLYETHYLENE (MIRALAX) 17 GM PACK PO SCH ×4 (06:16→23:49)
--- NOTE | 2022-04-12 07:42 | Orthopedic Progress Note ---
Date of Service April 12, 2022 Assessment & Plan (1) Lumbar stenosis with neurogenic claudication: Plan: Patient is doing well postop day #2. I encouraged her to continue walking with physical therapy. We will continue with GI DVT prophylaxis and drain management . We will likely be able to discharge her to home tomorrow. Admission and Anticipated Discharge Date Admission Date: April 10, 2022 Subjective Patient was seen bedside in room 312. She is doing well this morning. Her pain is well controlled. She was up and walking yesterday with physical therapy. The leg feels better already. She still is having a tight sensation in the back itself. She denies any other numbness, tingling, or paresthesias. Physical Exam Physical Exam: On exam she is alert and oriented. Her JORGE drain is in place and holding suction. She has had 55 cc of drainage on this shift and 60 on the previous. Her abdomen soft nontender calves are supple and nontender. Strength and sensation are both intact. Results & Data ([facility]) Vital Signs (Past 12 Hours) Vital Signs Temp Pulse Resp BP Pulse Ox O2 Del Method 04/12/22 07:36 36.9 C 67 14 124/67 96 Room Air 04/11/22 20:36 37.2 C 74 18 117/58 L 96 Room Air 04/11/22 20:18 74 116/64
[2022-04-12 07:43] LABS: Hematocrit (blood only) 30.6 % (34.1-44.9); Hemoglobin 9.7 g/dl (12.0-16.0); Mean Corpuscular Hemoglobin 26.9 pg (25.0-34.0); Mean Corpuscular Hgb Conc 31.7 g/dL (32.0-36.0); Mean Platelet Volume 10.4 fL (9.4-12.3); Platelet Count 181 K/uL (130-400); RDW Coefficient of Variation 14.5 % (11.5-14.5); RDW Standard Deviation 44.6 fL (36.4-46.3); White Blood Count 10.28 K/ul (4.8-10.8)
[2022-04-12 08:18] LABS: BUN Creatinine Ratio 21.2 (10-20); Creatinine Clr Calc Pharmacy 60.9 ml/min; Est GFR (African American) 99.5 ml/min; Est GFR (Non-African American) 85.8 ml/min; Potassium 4.1 mmol/L (3.5-5.1)
[2022-04-12] MEDS: predniSONE 5 MG TAB PO SCH (08:21)
[2022-04-12] MEDS: PRAVASTATIN SOD 40 MG TAB PO SCH (08:22)
[2022-04-12] MEDS: FLUoxetine HCL 20 MG CAP PO SCH (08:23)
[2022-04-12] MEDS: PANTOprazole 40 MG TAB PO SCH ×2 (08:23→21:07)
[2022-04-12] MEDS: CHOLECALCIFEROL 1,000 UNITS 25 MCG TAB PO SCH (08:23)
[2022-04-12] MEDS: ASPIRIN 81 MG ECTAB PO SCH (08:24)
[2022-04-12] MEDS: CARISOPRODOL 350 MG TABLET PO SCH ×3 (09:10→21:07)
[2022-04-12] MEDS: HYDROCODONE/ACETAMOPHEN 5/325MG TAB PO PRN ×2 (09:10→13:25)
[2022-04-12] MEDS: INSULIN ASPART PER UNIT SC SCH ×4 (10:06→21:07)
[2022-04-12] MEDS: dexAMETHasone 6 MG in SYRINGE 0 ML IV SCH (13:12)
--- NOTE | 2022-04-12 16:19 | Hospitalist Progress Note ---
Date of Service April 12, 2022 Assessment & Plan (1) Status post lumbar surgery: Plan (1) Status post lumbar surgery: (2) Lumbar stenosis with neurogenic claudication: Likely Ac Blood loss anemia, post operative: Hb dropped from 13 to 10.6 post operatively, has been stable. Post op day# 1 S/P L1-L3 decompression and fusion by Dr Nora LANGLEY#150ml Pain management per ortho Wound management per ortho PT/OT as appropriate DVT prophylaxis per ortho Incentive spirometry Pt w/ no dizziness/chest pain/palpitations. Concern for UTI: rocephin, f/u UA, Ucx. (3) Essential hypertension: BP running low side after coming to floor from surgery. Given IVF bolus with improvement BP of 103/58 Continue to hold home blood pressure medication, reassess on a daily basis to resume home medication. Atenolol with holding parameters (4) Diabetes mellitus, type II: Insulin dependent A1c: 6.7 on 03/27/22 Continue home dose insulin glargine with sliding scale. (5) CAD (coronary artery disease): S/P stent in 2004, 2006 Continue aspirin, atenolol with holding parameters (6) Arthritis: On chronic steroids Continue prednisone (7) Mixed hyperlipidemia: Continue ezetimibe Resume Praluent outpatient (8) COPD (chronic obstructive pulmonary disease): No signs exacerbation Continue albuterol prn (9) Depression: Continue fluoxetine DVT Prophylaxis SCDs per ortho Disposition per primary team Follows with Dr Syed Clemons for routine care Admission and Anticipated Discharge Date Admission Date: April 10, 2022 Subjective Patient seen and examined at bedside as a follow-up of medical consult for status post lumbar surgery. Patient was lying in bed, on room air, NAD, reports eating okay and tolerating diet well, has normal bowel, is moving gas, reports some pain at incision site, reports improvement in her LLE radicular pain, denies any fever/headache/dizziness/chest pain/palpitations/belly pain/other review of symptoms. Per RN, pt is reporting pressure in the bladder, mild burning on uirnation and has urgency issue. Will Get UA, rocephin for now. Physical Exam Physical Exam: GENERAL: Alert and oriented x3. NAD, on RA. HEENT: No pallor, no icterus. Pupils equal, round and reactive to light. Oral mucosa moist. NECK: No JVD, no neck masses. HEART: S1 and S2 heard. Regular rate and rhythm. No murmur, no gallop. RESPIRATORY SYSTEM: Normal AP diameter. No accessory muscle use. No wheezing, no crackles. ABDOMEN: Soft, bowel sounds present, nontender, no distention. CENTRAL NERVOUS SYSTEM: No facial droop. Speech is clear. Obeys simple commands. Moves extremities. EXTREMITIES: No edema, no erythema seen. Low back with clean dressing without soakage. JORGE drain with minimal serosanguineous collection noted. Results & Data Results & Data ([facility]) Vital Signs (Past 12 Hours) Vital Signs Temp Pulse Resp BP Pulse Ox O2 Del Method 04/12/22 14:23 36.9 C 73 14 100/56 L 94 Room Air 04/12/22 07:36 36.9 C 67 14 124/67 96 Room Air
[2022-04-12] MEDS: cefTRIAXone SODIUM 2,000 MG in DEXTROSE 5% 50 ML IV SCH (16:53)
[2022-04-12 16:59] LABS: Appearance Urine Clear (Clear); Bacteria Urine Automated Negative (Negative); Bilirubin Urine Negative (Negative); Blood Urine Negative (Negative); Cast Urine Automated 0 /lpf (0-5); Color Urine Yellow; Glucose Urine UA Negative (Negative); Ketones Urine Negative (Negative); Leukocyte Esterase Urine Trace (Negative); Nitrite Urine Negative (Negative); Protein Urine Negative (Negative); RBC Urine Automated 0-4 /hpf (0-4); Specific Gravity Urine 1.007 (1.000-1.030); Urobilinogen Urine Negative (Negative); pH Urine 7.5 (4.5-7.5)
[2022-04-12] MEDS: EZETIMIBE 10 MG TABLET PO SCH (21:06)
[2022-04-12] MEDS: ATENOLOL 25 MG TABLET PO SCH (21:06)
[2022-04-12] MEDS: DOCUSATE SODIUM/SENNA 50/8.6MG TAB PO SCH (21:07)
[2022-04-12] MEDS: ZOLPIDEM TARTRATE 10 MG TAB PO SCH (21:07)
[2022-04-12] MEDS: LANTUS PER UNIT CHARGE SQ SCH (21:08)
[2022-04-13] MEDS: POLYETHYLENE (MIRALAX) 17 GM PACK PO SCH ×2 (06:22→13:49)
[2022-04-13 07:00] LABS: Hematocrit (blood only) 31.6 % (34.1-44.9); Hemoglobin 10.1 g/dl (12.0-16.0); Mean Corpuscular Hemoglobin 27.6 pg (25.0-34.0); Mean Corpuscular Volume 86.3 fL (80.0-100.0); Mean Platelet Volume 9.7 fL (9.4-12.3); Platelet Count 165 K/uL (130-400); RDW Coefficient of Variation 14.4 % (11.5-14.5); RDW Standard Deviation 45.1 fL (36.4-46.3); Red Blood Count 3.66 M/uL (3.93-5.22); White Blood Count 9.14 K/ul (4.8-10.8)
[2022-04-13] MEDS: HYDROCODONE/ACETAMOPHEN 5/325MG TAB PO PRN ×2 (08:05→13:45)
[2022-04-13] MEDS: CHOLECALCIFEROL 1,000 UNITS 25 MCG TAB PO SCH (09:00)
[2022-04-13] MEDS: FLUoxetine HCL 20 MG CAP PO SCH (09:00)
[2022-04-13] MEDS: ASPIRIN 81 MG ECTAB PO SCH (09:00)
[2022-04-13] MEDS: PANTOprazole 40 MG TAB PO SCH (09:00)
[2022-04-13] MEDS: PRAVASTATIN SOD 40 MG TAB PO SCH (09:01)
[2022-04-13] MEDS: predniSONE 5 MG TAB PO SCH (09:01)
[2022-04-13] MEDS: INSULIN ASPART PER UNIT SC SCH ×2 (09:06→12:28)
[2022-04-13] MEDS: CARISOPRODOL 350 MG TABLET PO SCH (09:06)
--- NOTE | 2022-04-13 10:13 | Discharge Summary ---
Date of Service April 13, 2022 Admission HPI Per Admitting Provider This is a 76-year-old female who presents with chronic persistent back and bilateral leg pain. Failed extensive course of nonoperative care is here for surgical invention. Principal Diagnosis Lumbar spinal stenosis with radiculopathy Discharge Data Allergies Allergy/AdvReac Type Severity Reaction Status Date / Time Bactrim Allergy Severe SWELLING/RA Verified 08/20/14 08:48 SH Iodinated Contrast Media Allergy Severe ANAPHYLAXIS, Verified 04/10/22 08:28 FINE RASH sulfamethoxazole [Bactrim] Allergy Severe SWELLING/RA Verified 04/10/22 08:28 SH trimethoprim [Bactrim] Allergy Severe SWELLING/RA Verified 04/10/22 08:28 SH Penicillins Allergy Intermediate FINE RASH Verified 04/10/22 08:28 phenylephrine Allergy Unknown UNKNOWN Verified 04/10/22 08:28 REACTION DURING ADMISSION promethazine Allergy Unknown UNKNOWN Verified 04/10/22 08:28 REACTION DURING ADMISSION Cipro AdvReac Mild N/V Verified 08/01/14 13:00 ciprofloxacin [Cipro] AdvReac Mild N/V Verified 04/10/22 08:28 Egg Derived AdvReac Mild N/V Verified 04/10/22 08:28 meperidine AdvReac Mild N/V Verified 04/10/22 08:28 simvastatin AdvReac Mild MYALGIA Verified 04/10/22 08:28 metformin AdvReac Unknown GI DISTRESS Verified 04/10/22 08:28 Unclassified Drugs AdvReac Intermediate TIFFANIE > Uncoded 04/10/22 08:28 INFECTION Consultations 04/10/22 13:04 Consult Hospitalist Routine Procedures Performed Operation Date: 04/10/22 09:35 Actual Procedures p L1-L3 Decompression and Fusion, Spinal Cord Monitoring(Not Applicable) - Yury Melendez DO s L3-L5 Hardware Removal(Not Applicable) - Yury Melendez DO Ordered Studies 04/10/22 09:35 FL lumbar spine 2-3V Routine Hospital Course (1) Lumbar stenosis with neurogenic claudication: Patient with lumbar decompression fusion tolerated this well stable orthopedic for postoperative. Postop day 1 she was up and ambulating progressed to postop day #2 on postop day #3 JORGE drainage decreased probably. Excellent strength testing. Pain well controlled. Subsequently discharged home. Discharge orders and instructions can be found on the chart for further review. Total Time Total Time Spent Total Time Spent (In Minutes): 20 minutes Discharge Plan Discharge Items Patient Disposition: Home - Self-Care Reason For Visit: post op Discharge Diagnosis: Lumbar spinal stenosis with chronic nucleus pulposus and radiculopathy Activity: As commented below Non-emergency contact: Primary Care Provider Call non-emergency contact if: you have any medication questions Follow-up/Referrals: Syed Clemons D.O. [Primary Care Provider] - Diet: Regular Addtl Attending Provider Instructions: ACTIVITY RECOMMENDATIONS: SELF CARE INSTRUCTIONS AFTER THORACIC/LUMBAR FUSIONS 1. You may walk to your tolerance. It is good exercise for your legs and back. Expect some back and intermittent leg aches and pains. 2. You may perform "counter-top" level activities (make a sandwich, viridiana with a project, etc.). 3. No bending or lifting of more than 10 pounds or back twisting of any nature (roll like a log when turning in bed). 4. You may ride in a car for 20-30 minutes at a time. No driving until after your first visit with your doctor. 5. Frequent changes of position and restricting sitting to 30 minutes at a time will help limit the amount of back spasms and stiffness you may experience. 6. You may discontinue the use of ambulatory aids (cane, crutches, etc.) once your strength and confidence allow. 7. You may sap trainer the shower and let water strike your incision when you arrive home at least once daily. Do not take a tub bath, sit in a hot tub or go into a swimming pool until after your first recheck in the office. SPECIAL CARE INSTRUCTIONS: VERY IMPORTANT TO READ AND REVIEW A. Your surgical incision has been closed with a cosmetic suture under the skin that will dissolve in about 6 weeks. In 14 days, you can use a pair of clean scissors and cut the suture that is left outside of the skin at the ends of your incision. 1. The small skin tapes can be removed 7 days after surgery if they have not fallen off by that point. 2. You may keep the wound open to air as much as possible to promote healing after post-op day number 5 unless told otherwise by your doctor. 3. If you think the wound looks like it is becoming infected (redness or worsening drainage) and/or you are experiencing fever, chill or worsening back pain and muscle spasms, contact the office so that we may evaluate you as soon as possible. B. Complications are uncommon, but please contact us if you have any signs or symptoms of: 1. wound infection (fever higher than 102.5 degrees F, redness, separation of wound, drainage, or increasing pain from the incision) 2. blood clots in legs (pain, swelling, redness and warmth in legs) 3. urinary tract infection (fever higher than 102.5 degrees F, burning upon urination or increased frequency of urination) 4. nerve problems (inability to walk on your toes or heels, numbness, loss of bowel or bladder control) 5. any other symptoms that concern you C. Please call the office at if you have any concerns or questions about your operation or recovery. D. No smoking! Smoking drastically decreases the chance of a solid fusion. E. Do not take any anti-inflammatory medications (Indocin, Advil, Motrin, Aspirin, Naprosyn, etc.) as these may inhibit the chance of a solid fusion. Tylenol is okay to take for pain. MANAGING PAIN AFTER SPINAL SURGERY 1. Narcotic medication is intended for short-term use and will be provided for surgical pain. Surgical pain usually lasts for a period of 4-6 weeks. Narcotic medication includes Percocet, Vicodin, Darvocet, Tylenol #3 or Lortab. 2. Longer-term pain is more appropriately treated with non-narcotic medication such as Tylenol ES. 3. Muscle spasm is not appropriately treated with narcotics. Muscle relaxers such as Soma, Flexeril or Skelaxin can be used along with Tylenol ES. 4. Remember that we all live with some "aches and pains". This is not unusual or uncommon after an injury or as we get older. a. Back pain is expected and may include muscle spasms for 4 to 6 weeks after surgery. The pain should gradually improve. If the pain worsens for no apparent reason, please contact the office. b. Intermittent leg pain may also be experienced and should not be concerned about unless it worsens for no apparent reason. If so, please contact the office. 5. We will provide appropriate medication within the normal guidelines of their prescribed use. We will also be very cautious and aware of potential abuse and extended duration of patients' medication needs. a. Pain medications are for your comfort and to assist with sleep and rest so that the tissue can heal. They are not provided in order to return to normal activity and should not be used through the day. To do so or worsening pain at night can result from ongoing tissue damage and development of tolerance to the prescribed medicine. 6. Please allow 2-3 days to process refills. Prescriptions will not be mailed but must be picked up at the office. FOLLOW UP VISIT: Keep your scheduled follow-up appointment. Any questions, please call the office at . Pending Studies at Discharge: No Stand-Alone Forms: [facility] [employer], Smoking Cessation Medications and DC Order Prescriptions: New oxycodone 5 mg tablet 5 mg PO Q6H PRN (Reason: pain, severe) Qty: 30 0RF tramadol 50 mg tablet 50 mg PO Q6H PRN (Reason: pain, moderate) Qty: 30 0RF Continued prednisone 5 mg Tablet 5 mg PO QAM cholecalciferol (vitamin D3) 100 mcg (4,000 unit) Capsule 100 mcg PO QAM alirocumab 150 mg/mL Syringe 150 mg SUBCUT UD Rx Instructions: Q 14 DAYS carisoprodol [Soma] 350 mg Tablet 350 mg PO TID sennosides-docusate sodium 8.6-50 mg Tablet 1 tab-cap PO HS atenolol 25 mg Tablet 25 mg PO QPM pravastatin 80 mg Tablet 80 mg PO QAM fluoxetine 20 mg Tablet 20 mg PO QAM nitroglycerin [Nitrostat] 0.4 mg Tablet, Sublingual 0.4 mg sublingual UD PRN (Reason: Chest Pain) omeprazole 20 mg Capsule,Delayed Release(Dr/Ec) 20 mg PO BID zolpidem 10 mg Tablet 10 mg PO QPM ezetimibe [Zetia] 10 mg Tablet 10 mg PO QPM diclofenac sodium 1 % Gel 1 ea TOPICAL TID PRN (Reason: Pain) Prolia 60 mg DIRECTED Rx Instructions: EVERY 6 MONTHS Toujeo Max U-300 SoloStar 12 unit INJ HS aspirin 81 mg Tablet,Delayed Release (Dr/Ec) 81 mg PO DAILY fluoxetine 40 mg Capsule 40 mg PO DAILY albuterol sulfate [Ventolin HFA] 90 mcg/actuation Hfa Aerosol Inhaler 2 puff INHALATION Q4H PRN (Reason: Shortness Of Breath Or Wheezing) lisinopril 2.5 mg Tablet 2.5 mg PO PM Discharge Orders: Discharge Order (Routine); Ordered 04/13/22 Ordered By: Yury Melendez Admission Data Admit Date/Time: 04/10/22 11:33 Attending Provider: Yury Melendez Admit Provider: Yury Melendez Primary Care Provider: Syed Clemons Other Providers: Geno Woodruff ; Kedar Lange
[2022-04-13] MEDS: cefTRIAXone SODIUM 2,000 MG in DEXTROSE 5% 50 ML IV SCH (12:21)
--- NOTE | 2022-04-13 12:29 | Hospitalist Progress Note ---
Date of Service April 13, 2022 Assessment & Plan (1) Status post lumbar surgery: Plan (1) Status post lumbar surgery: (2) Lumbar stenosis with neurogenic claudication: Likely Ac Blood loss anemia, post operative: Hb dropped from 13 to 10.6 post operatively, has been stable. Post op day# 2 S/P L1-L3 decompression and fusion by Dr Nora LANGLEY#150ml Pain management per ortho Wound management per ortho PT/OT as appropriate DVT prophylaxis per ortho Incentive spirometry Pt w/ no dizziness/chest pain/palpitations. Concern for UTI: rocephin, f/u UA, Ucx. cefdinir upon dc to complete the course (3) Essential hypertension: BP running low side after coming to floor from surgery. Given IVF bolus with improvement BP of 103/58 Continue to hold home blood pressure medication, reassess on a daily basis to resume home medication. Atenolol with holding parameters (4) Diabetes mellitus, type II: Insulin dependent A1c: 6.7 on 03/27/22 Continue home dose insulin glargine with sliding scale. (5) CAD (coronary artery disease): S/P stent in 2004, 2006 Continue aspirin, atenolol with holding parameters (6) Arthritis: On chronic steroids Continue prednisone (7) Mixed hyperlipidemia: Continue ezetimibe Resume Praluent outpatient (8) COPD (chronic obstructive pulmonary disease): No signs exacerbation Continue albuterol prn (9) Depression: Continue fluoxetine DVT Prophylaxis SCDs per ortho Disposition per primary team Follows with Dr Syed Clemons for routine care Admission and Anticipated Discharge Date Admission Date: April 10, 2022 Subjective Patient seen and examined at bedside as a follow-up of medical consult for status post lumbar surgery. Patient was lying in bed, on room air, NAD, reports eating okay and tolerating diet well, has normal bowel, is moving gas, reports improving pain at incision site, reports continued improvement in her LLE radicular pain, denies any fever/headache/dizziness/chest pain/palpitations/belly pain/other review of symptoms. Pt was reporting pressure in the bladder, mild burning on urination and has urgency issue 04/12, given rocephin 04/12, then improved with symptoms. Physical Exam Physical Exam: GENERAL: Alert and oriented x3. NAD, on RA. HEENT: No pallor, no icterus. Pupils equal, round and reactive to light. Oral mucosa moist. NECK: No JVD, no neck masses. HEART: S1 and S2 heard. Regular rate and rhythm. No murmur, no gallop. RESPIRATORY SYSTEM: Normal AP diameter. No accessory muscle use. No wheezing, no crackles. ABDOMEN: Soft, bowel sounds present, nontender, no distention. CENTRAL NERVOUS SYSTEM: No facial droop. Speech is clear. Obeys simple commands. Moves extremities. EXTREMITIES: No edema, no erythema seen. Low back with clean dressing without soakage. Results & Data Results & Data ([facility]) Vital Signs (Past 12 Hours) Vital Signs Temp Pulse Resp BP Pulse Ox O2 Del Method 04/13/22 07:32 36.9 C 60 14 137/64 97 Room Air
== END 2022-04-13 14:00 | disposition home or self-care (01) | DRG 460 ==
LOC: ASU 07:57 → 3E 11:33